=== PATIENT | male | born 1945 | race Caucasian/White ===

== ENCOUNTER → 2018-10-12 | Outpatient (CLI) | payer OTHER ==
[~2018-10-12] VITALS: Ht 182.9 cm; Wt 90.7 kg
[~2018-10-12] MED LIST: ADVIL PM CAPLE1 EACH PO; CENTRUM SILVER1 EAC2 PO; LIPITOR10 MG PO; NORVASC5 MG PO; TELMISARTAN40 MG PO; VALACYCLOVIR500 MG PO; ZANTAC 150MG T150 MG PO; [UNRECOGNIZED DRUG - OTHER] OPHTHALMIC
--- NOTE | 2018-10-13 13:14 | PATH ---
[facility] [address] [place] [address] PATHOLOGY RPT PROCEDURE Name: JULIO TITUS Room #: REG [facility] [place]#: [id number] ������������������ Admission: 10/12/18 ������������������ Date of : 43 Discharge: Report #: [id number] Path Case #: [id number] [facility] Accession Number: [id number] . 01 Material submitted: . BX - RANDOM COLON R/O MICROSCOPIC COLITIS HX DIARRHEA . 01 Clinical history: . Pre-OP DX: Diarrhea, screening Post-OP DX: Diarrhea . 02 Diagnosis: Large intestinal mucosa, random, R/O microscopic colitis, endoscopic biopsy: - Mild focal active colitis. - Negative for dysplasia or malignancy. (IUV:levi; 10/13/2018) QMS/10/13/2018 . 02 Comment: Sections of the colonic mucosa designated "random colon" show focal cryptitis, and a moderately cellular lamina propria composed predominantly of lymphocytes and plasma cells and occasional eosinophils. Surface epithelial ulceration is not identified. There are no crypt abscesses, granulomas or viral inclusions. The process affects all the fragments with a similar intensity. Given the description, the differential diagnosis includes mild active colitis of self-limited etiology, infectious etiology, early inflammatory bowel disease, medication-induced colitis as well as diverticulitis. Please correlate clinically. (IUV:levi; 10/13/2018) . 02 Electronically signed: . Janet Jamil MD, Pathologist NPI- [id number] . 01 Gross description: . Received in formalin labeled "Julio Titus, random colon BX, rule out microscopic colitis," are 4 segments of diane soft tissue measuring 1.5 x 0.9 x 0.3 cm in aggregate dimensions and ranging from 0.2 to 0.6 cm in maximum dimension. The specimen is submitted entirely in cassette A1. (TSD; 10/12/2018) TOB/TOB . 02 Pathologist provided ICD-10: K52.9 . 02 [place] [address] PATHOLOGY RPT PROCEDURE Name: JULIO TITUS [place] Room #: REG [facility].#: [id number] ������������������ Admission: 10/12/18 ������������������ Date of : 43 Discharge: Report #: [id number] Path Case #: [id number] Specimen Comment: A courtesy copy of this report has been sent to Specimen Comment: [phone], . Specimen Comment: Report sent to / DR FERREIRA Specimen Comment: A duplicate report has been generated due to demographic updates. Performed at: [address], [place] [id number] MD Koko Parra MD Phone: [phone] Performed at: [address] [id number] MD Janet Jamil MD Phone: [phone]
--- NOTE | 2018-10-14 08:29 | P ---
[facility] [place] [address] PROCEDURE REPORT Name: EDWIN TITUS Room #: REG [facility]#: [id number] Admission: 10/12/18 ������������������ Attend Phys: Ludwin Valentine Discharge: ������������������ Date of : 43 Report #: [id number] THIS REPORT FOR: //name// CC: Jarrod Samson DATE OF SERVICE: 10/12/2018 PROCEDURE PERFORMED: Colonoscopy with biopsies. HISTORY OF PRESENT ILLNESS: The patient is a 72-year-old male who presents today for routine screening colonoscopy. Last colonoscopy apparently 10 years ago and was negative. He denies any symptoms other than some loose stools at times. No family history of colon cancer. DESCRIPTION OF PROCEDURE: The risks and benefits of the procedure were explained to the patient, those risks including, but not limited to, bleeding, perforation, the risk of sedation. He understood these risks and gave informed consent. Sedation was given using propofol per anesthesia. Next, a digital rectal exam was initially performed, which was normal. Next, using a standard Olympus colonoscope, the scope was placed in the patient's anus and advanced under direct vision to the cecum. The overall prep was good in most areas. There were a few small areas in which the prep was fair, but multiple washings and aspirations were performed and overall, good visualization was obtained. The cecum and ileocecal valve were normal in appearance. Ascending, transverse, descending and sigmoid colon were all normal. The rectal mucosa was normal. On retroflexion, no abnormalities were noted. Random biopsies were obtained to rule out the possibility of microscopic colitis. The scope was then withdrawn and the procedure terminated. The patient tolerated the procedure well. IMPRESSION: Normal colonoscopy. RECOMMENDATIONS: 1. Await biopsy results. 2. We discussed a trial of probiotics. 3. Repeat colonoscopy at age 79. Thank you for allowing me to participate in his care. ��������������������������������������������� <ELECTRONICALLY SIGNED> ���������������������������������������� By: Ludwin Samson MD ��������������������������������������������� 10/14/18 [id number] Ludwin Samson MD /nt
== END | disposition home or self-care (01) ==
LOC: GI 08:35
DX: K52.9 Noninfective gastroenteritis and colitis, unspecified (principal); I10 Essential (primary) hypertension; E78.5 Hyperlipidemia, unspecified; K21.9 Gastro-esophageal reflux disease without esophagitis; Z85.46 Personal history of malignant neoplasm of prostate; Z98.890 Other specified postprocedural states; Z79.899 Other long term (current) drug therapy
CPT/HCPCS: 62110; 62900

== ENCOUNTER → 2019-12-01 | Outpatient (CLI) | payer OTHER | LOC: SJCVC 10:26 | DX: R94.31 Abnormal electrocardiogram [ECG] [EKG] (principal); R00.1 Bradycardia, unspecified; I45.10 Unspecified right bundle-branch block; R07.89 Other chest pain; I10 Essential (primary) hypertension; E78.5 Hyperlipidemia, unspecified; R93.1 Abnormal findings on diagnostic imaging of heart and coronary circulation; K21.9 Gastro-esophageal reflux disease without esophagitis ==

== ENCOUNTER → 2019-12-07 | Outpatient (CLI) | payer OTHER | LOC: SJCVCIMAG 10:50 | DX: I49.3 Ventricular premature depolarization (principal); R93.1 Abnormal findings on diagnostic imaging of heart and coronary circulation; I10 Essential (primary) hypertension; E78.5 Hyperlipidemia, unspecified ==

== ENCOUNTER 2020-01-01 18:11 | Emergency (ER) | payer OTHER ==
[~2020-01-01] VITALS: Ht 182.9 cm; Wt 87.1 kg
[2020-01-01] MEDS ORDERED: KRISTALOSE20 GM PO (21:52)
[2020-01-01] MEDS ORDERED: LIDOCAINE 2%2 %/5 GM TOP (21:52)
[2020-01-01 22:10] VITALS: BP 158/84
== END 2020-01-01 22:11 | disposition home or self-care (01) ==
LOC: ER 18:11
DX: K59.00 Constipation, unspecified (principal); K62.89 Other specified diseases of anus and rectum; K21.9 Gastro-esophageal reflux disease without esophagitis; I10 Essential (primary) hypertension; E78.5 Hyperlipidemia, unspecified; Z98.890 Other specified postprocedural states; Z79.899 Other long term (current) drug therapy

== ENCOUNTER → 2020-12-05 | Outpatient (CLI) | payer OTHER ==
[~2020-12-05] MED LIST changes: +KRISTALOSE20 GM PO; +LIDOCAINE 2%2 %/5 GM TOP
== END ==
LOC: SJCVC 15:00
PROVIDERS: ATTEND Internal Medicine Cardiovascular Disease
DX: R94.31 Abnormal electrocardiogram [ECG] [EKG] (principal); R00.8 Other abnormalities of heart beat; R93.1 Abnormal findings on diagnostic imaging of heart and coronary circulation; I10 Essential (primary) hypertension; R00.1 Bradycardia, unspecified; E78.5 Hyperlipidemia, unspecified; Z88.2 Allergy status to sulfonamides; Z79.899 Other long term (current) drug therapy